=== PATIENT | female | born 1985 | race Caucasian/White ===

== ENCOUNTER 2017-07-18 07:09 | Emergency (ER) | payer MEDICARE, MEDICAID ==
[~2017-07-18] VITALS: Ht 162.6 cm; Wt 101.0 kg
[~2017-07-18 07:09] MED LIST: IBUP-1984 PO
[2017-07-18] MEDS ORDERED: IBUP-1984 PO (07:27)
[2017-07-18 07:40] VITALS: BP 153/107
== END 2017-07-18 07:30 | disposition home or self-care (01) ==
LOC: ER 07:10
DX: M79.641 Pain in right hand (principal); I10 Essential (primary) hypertension; F17.200 Nicotine dependence, unspecified, uncomplicated
CPT/HCPCS: 99282

== ENCOUNTER 2020-09-21 21:11 | Emergency (ER) | payer MEDICAID, MEDICARE ==
[~2020-09-21] VITALS: Ht 162.6 cm; Wt 68.0 kg
[2020-09-22 00:28] VITALS: BP 155/95
== END 2020-09-22 00:30 | disposition home or self-care (01) ==
LOC: ER 21:12
DX: S93.601A Unspecified sprain of right foot, initial encounter (principal); I10 Essential (primary) hypertension; Z79.899 Other long term (current) drug therapy; X50.9XXA Other and unspecified overexertion or strenuous movements or postures, initial encounter; Y93.89 Activity, other specified; Y92.89 Other specified places as the place of occurrence of the external cause; Y99.8 Other external cause status
CPT/HCPCS: 73610; 73630; 99284